=== PATIENT | female | born 1955 | race Hispanic/Latino ===

== ENCOUNTER 2016-09-01 13:45 | Outpatient (CLI) | payer BC ==
--- NOTE | 2016-09-01 14:30 | Mammography Report ---
Bilateral mammogram: No previous studies available. CAD study utilized. Findings: Predominance adipose tissue bilaterally. Biopsy clip upper outer posterior right breast. Circumscribed density measuring 1 cm in diameter if calcification approximate 2:00 position right breast. Normal axilla. Impression: Circumscribed density with calcification or o'clock position right breast. Comparison with previous studies is recommended. If previous studies are not available spot mag and sonographic examination advised. BI-RADS CATEGORY: 0 = Needs additional imaging evaluation ACR BI-RADS MAMMOGRAPHIC CODES: 0 = Needs additional imaging evaluation; 1 = Negative; 2 = Benign; 3 = Probably benign; 4 = Suspicious; 5 = Malignant; 6 = Known biopsy-proven malignancy COMMENT: 1. Dense breast tissue, i.e., adenosis, fibrocystic changes, etc., may obscure an underlying neoplasm. 2. Approximately 10% of cancers are not detected with mammography. 3. A negative mammography report should not delay biopsy if a clinically suspicious mass is present. COMMENT: Patient follow-up letters are generated in [employer].
== END 2016-09-01 13:46 | disposition home or self-care (01) ==
LOC: SPVWC 13:45
DX: Z12.31 Encounter for screening mammogram for malignant neoplasm of breast (principal)
CPT/HCPCS: 77067; G0202

== ENCOUNTER 2016-09-14 14:47 | Outpatient (CLI) | payer BC ==
--- NOTE | 2016-09-14 15:25 | Mammography Report ---
RIGHT DIGITAL DIAGNOSTIC MAMMOGRAM : 09/14/16 14:47:00 CLINICAL: Recall for calcifications. COMPARISON:09/01/16 FINDINGS:Lateralmedial and LM and CC magnification views were performed and demonstrate a group of suspicious pleomorphic calcifications at 12 o'clock approximately 8.5 cm from the nipple. Calcifications are largely restricted to a 1.5 cm volume of tissue on the CC view. A small cluster of similar calcifications is also identified approximately 1 cm lateral to the larger group. No layering on the lateral view. There is suggestion of a low-density mass associated with the calcifications. IMPRESSION: Suspicious calcifications at 12 o'clock right breast. BI-RADS CATEGORY: 4--Suspicious RECOMMENDATION: Stereotactic biopsy of the right breast. I discussed the findings and the recommendation for a stereotactic needle biopsy of the left breast with the patient at the time of the examination. ACR BI-RADS MAMMOGRAPHIC CODES: 0 = Needs additional imaging evaluation; 1 = Negative; 2 = Benign; 3 = Probably benign; 4 = Suspicious; 5 = Malignant; 6 = Known biopsy-proven malignancy COMMENT: 1. Dense breast tissue, i.e., adenosis, fibrocystic changes, etc., may obscure an underlying neoplasm. 2. Approximately 10% of cancers are not detected with mammography. 3. A negative mammography report should not delay biopsy if a clinically suspicious mass is present. COMMENT: Patient follow-up letters are generated by our [employer] application.
== END 2016-09-14 14:48 | disposition home or self-care (01) ==
LOC: SPVWC 14:47
PROVIDERS: ATTEND Family Medicine
DX: R92.1 Mammographic calcification found on diagnostic imaging of breast (principal)
CPT/HCPCS: G0206-RT

== ENCOUNTER 2016-10-06 10:04 | Outpatient (CLI) | payer BC ==
--- NOTE | 2016-10-06 11:51 | Mammography Report ---
RIGHT DIGITAL DIAGNOSTIC MAMMOGRAM: 10/06/16 10:04:00 CLINICAL: For clip placement immediately status post stereotactic biopsy of the right breast. COMPARISON:09/01/16 FINDINGS: A biopsy clip is now identified at 12 o'clock and the previously described calcifications have been removed. There is a small less than 2 cm hematoma IMPRESSION: Concordant clip placement status post stereotactic biopsy. BI-RADS CATEGORY: 4--Suspicious Pathology pending.
--- NOTE | 2016-10-06 13:19 | Mammography Report ---
STEREOTACTIC VACUUM ASSISTED BIOPSY WITH CLIP PLACEMENT RIGHT BREAST: 10/06/16 10:04:00 CLINICAL: Suspicious calcifications at 12 o'clock right breast. COMPARISON:01/14/17 FINDINGS: Consent for the procedure was obtained. The group of calcifications at 12 o'clock was targeted with stereotactic guidance. The skin was prepped with Betadine and anesthetized with 1% lidocaine. 2% lidocaine with epinephrine was injected for deeper anesthesia. 8 gauge Mammotome biopsy was performed from a CC from above approach through a small dermatotomy. Prefire and post-fire images demonstrated satisfactory positioning of the probe. Samples were obtained around the clock face. A specimen radiograph confirmed satisfactory sampling with removal of client services representative calcifications. A clip was deployed at the biopsy site and confirmation was obtained with a single image. The probe was removed and hemostasis was achieved with minimal pressure. A sterile dressing was applied. The patient tolerated the procedure well and there were no apparent complications. Two view mammogram demonstrated concordant position of the biopsy clip and removal of most if not all of the calcifications. IMPRESSION: Uncomplicated stereotactic biopsy with clip placement right breast.
== END 2016-10-06 10:05 | disposition home or self-care (01) ==
LOC: SPVWC 10:04
PROVIDERS: ATTEND Family Medicine
DX: N64.89 Other specified disorders of breast (principal); R92.1 Mammographic calcification found on diagnostic imaging of breast
CPT/HCPCS: 19081; 88305; A4648; G0206